=== PATIENT | female | born 1940 ===

== ENCOUNTER 2018-02-13 07:16 | Outpatient (CLI) | payer OTHER ==
[~2018-02-13] VITALS: Ht 157.5 cm; Wt 125.6 kg
== END 2018-02-13 07:45 | disposition home or self-care (01) ==
LOC: OFIC 805 07:16
DX: R49.0 Dysphonia (principal); J39.2 Other diseases of pharynx

== ENCOUNTER 2018-02-23 13:52 | Emergency (ER) | payer OTHER ==
[~2018-02-23] VITALS: Ht 162.6 cm; Wt 125.2 kg
[2018-02-23] MEDS ORDERED: LASIX20 MG (14:06)
[2018-02-23] MEDS ORDERED: METFORMIN HCL500 MG (14:06)
[2018-02-23] MEDS ORDERED: ASPIR 8181 MG (14:06)
[2018-02-23] MEDS ORDERED: COZAAR50 MG (14:06)
[2018-02-23] MEDS ORDERED: LIPITOR40 MG (14:07)
== END 2018-02-23 17:45 | disposition home or self-care (01) ==
LOC: ER 13:52
DX: G25.2 Other specified forms of tremor (principal)

== ENCOUNTER 2018-04-17 08:24 | Outpatient (CLI) | payer OTHER ==
[~2018-04-17] VITALS: Ht 152.4 cm; Wt 125.6 kg
[~2018-04-17 08:24] MED LIST: ASPIR 8181 MG; COZAAR50 MG; LASIX20 MG; LIPITOR40 MG; METFORMIN HCL500 MG
== END 2018-04-17 08:45 | disposition home or self-care (01) ==
LOC: OFIC 805 08:24
DX: R49.0 Dysphonia (principal); H93.13 Tinnitus, bilateral; H90.3 Sensorineural hearing loss, bilateral

== ENCOUNTER 2018-05-30 09:23 | Outpatient (CLI) | payer OTHER | END 2018-05-30 09:45 | disposition home or self-care (01) | LOC: OFIC 805 09:23 | DX: H90.3 Sensorineural hearing loss, bilateral (principal); H93.13 Tinnitus, bilateral; H61.23 Impacted cerumen, bilateral ==

== ENCOUNTER 2018-08-31 07:38 | Outpatient (CLI) | payer OTHER ==
[~2018-08-31] VITALS: Ht 152.4 cm; Wt 125.6 kg
== END 2018-08-31 07:55 | disposition home or self-care (01) ==
LOC: OFIC 805 07:38
DX: H90.3 Sensorineural hearing loss, bilateral (principal); H93.13 Tinnitus, bilateral; R49.0 Dysphonia; R68.89 Other general symptoms and signs

== ENCOUNTER 2018-11-30 08:43 | Outpatient (CLI) | payer OTHER ==
[~2018-11-30] VITALS: Ht 152.4 cm; Wt 125.6 kg
== END 2018-11-30 09:00 | disposition home or self-care (01) ==
LOC: OFIC 805 08:43
DX: H91.8X3 Other specified hearing loss, bilateral (principal); J34.89 Other specified disorders of nose and nasal sinuses; J32.8 Other chronic sinusitis

== ENCOUNTER 2019-02-06 09:26 | Outpatient (CLI) | payer OTHER ==
[~2019-02-06] VITALS: Ht 152.4 cm; Wt 125.6 kg
== END 2019-02-06 09:40 | disposition home or self-care (01) ==
LOC: OFIC 805 09:26
DX: J34.89 Other specified disorders of nose and nasal sinuses (principal); R09.81 Nasal congestion; H91.8X3 Other specified hearing loss, bilateral; H93.13 Tinnitus, bilateral

== ENCOUNTER 2019-11-01 10:51 | Outpatient (CLI) | payer OTHER ==
[~2019-11-01] VITALS: Ht 152.4 cm; Wt 129.3 kg
== END 2019-11-01 12:50 | disposition home or self-care (01) ==
LOC: OFIC 805 10:51
DX: R09.81 Nasal congestion (principal); H61.23 Impacted cerumen, bilateral; H93.13 Tinnitus, bilateral